=== PATIENT | female | born 1950 | race Caucasian/White ===

== ENCOUNTER → 2017-03-01 | Outpatient (CLI) | payer MEDICARE ==
--- NOTE | ~2017-03-01 | MY29 ---
[facility] A Service of [facility] RADIOLOGY TEXT RESULTS PATIENT: FREDERICK GRAHAM LOCATION: [facility] : 52 UNIT #: [id number] AGE: [address]: JACQUELYN MATHIS APRN SEX: F ORDER DR: [id number] [facility] [address] [place], [place] [address] [id number] O MR#: [id number] Acc #: [id number] NAME: FREDERICK GRAHAM : 1950 SEX: F STUDY DATE/TIME: 03/01/2017 7:47 UNIT: [facility] ROOM: STUDY DESCRIPTION: MY RICKEY SCREENING W/ CAD BILAT Attending Physician: Jacquelyn Mathis Aprn Referring Physician: Jacquelyn Mathis Aprn Ordering Physician: Jacquelyn Mathis Aprn Primary Care Physician: Jacquelyn Mathis Aprn MEDICAL IMAGING REPORT This report is preliminary unless electronic signature is present EXAM Digital screening mammogram 03/01/2017. [facility] HISTORY 66-year-old woman previous right breast biopsy. No risk elevation. Annual screening. COMPARISON: Mammograms date to 02/11/2009 with most recent 01/30/2013. FINDINGS Digital imaging of each breast was completed utilizing screening protocol. Review includes FDA-approved CAD device. Breast parenchyma is partially fatty replaced and mildly heterogeneous. Parenchymal dominance is stable upper outer posterior third right breast. This area contains a biopsy marker. There are no suspicious mass characteristics. There are no interval occurring microcalcifications and no architectural deformity. IMPRESSION Negative stable mammogram. Annual screening recommended. Patients over the age of 40 are entered into a reminder system with target due date for the next mammogram. A result letter will also be sent to the patient. BIRADS: 1 - negative Dictated by... [facility] A Service [facility] RADIOLOGY TEXT RESULTS PATIENT: FREDERICK GRAHAM LOCATION: [facility] : 52 UNIT #: [id number] AGE: [address]: JACQUELYN MATHIS APRN SEX: F ORDER DR: Camilo Mendez M.D. THIS IS AN ELECTRONICALLY VERIFIED REPORT Camilo Mendez M.D. at 03/01/2017 2:44 PM DANIELLE/benjamin TD: 03/01/2017 12:14 JOB #: [id number] MEDICAL IMAGING REPORT Page 1 of 1 COPY
== END | disposition home or self-care (01) ==
LOC: CWCC 07:20
DX: Z12.31 Encounter for screening mammogram for malignant neoplasm of breast (principal); Z98.890 Other specified postprocedural states
CPT/HCPCS: G0202